=== PATIENT | male | born 1965 | race Caucasian/White ===

== ENCOUNTER 2017-11-05 14:53 | Emergency (ER) | payer MEDICAID ==
[~2017-11-05] VITALS: Ht 180.3 cm; Wt 77.0 kg
[~2017-11-05 14:53] MED LIST: APIX5TAB3 PO; ASPI-1009 PO; ATOR40TA PO; BACL10TA PO; CEPH500C5 PO; FLO0.1T PO; HYDR500C18 PO
[2017-11-05 14:55] VITALS: BP 119/84
[2017-11-05] MEDS ORDERED: LORazepam 2 mg/ml vial IV ONE (15:00)
[2017-11-05] MEDS ORDERED: diphenhydrAMINE 50 mg/ml inj IV ONE (15:00)
[2017-11-05] MEDS ORDERED: normal saline 1000ML IV soln IVB ONE ×2 (15:00)
[2017-11-05] MEDS ORDERED: metoclopramide 5 mg/ml inj IV ONE (15:00)
[2017-11-05] MEDS ORDERED: ketorolac trometh. 30mg/ml inj. IV ONE (15:20)
[2017-11-05] MEDS ORDERED: morphine 4 MG/ML inj SYRINge IV ONE (15:20)
[2017-11-05 15:28] LABS: BASOPHILS % (AUTO) 0.2 % (0-1); EOSINOPHILS # (AUTO) 0.2 X10'3 (0-0.9); EOSINOPHILS % (AUTO) 2.1 % (0-6); HEMATOCRIT 52.1 % (42.0-52.0); HEMOGLOBIN 17.7 g/dl (14.0-17.9); LYMPHOCYTES # (AUTO) 1.2 X10'3 (1.1-4.8); LYMPHOCYTES % (AUTO) 13.1 % (21-51); MEAN CORPUSCULAR HEMOGLOBIN 33.5 PG (27.0-31.0); MEAN CORPUSCULAR VOLUME 98.7 FL (78-98); MONOCYTES # (AUTO) 0.5 X10'3 (0-0.9); MONOCYTES % (AUTO) 5.5 % (2-12); NEUTROPHILS # (AUTO) 7.3 X10'3 (1.8-7.7); NEUTROPHILS % (AUTO) 79.1 % (42-75); PLATELET COUNT 815 X10'3 (140-440); RED BLOOD COUNT 5.28 X10'6 (4.70-6.10); RED CELL DISTRIBUTION WIDTH 13.4 % (11.5-14.5); WHITE BLOOD COUNT 9.2 X10'3 (4.5-11.0)
[2017-11-05 15:37] LABS: ALANINE AMINOTRANSFERASE 23 U/L (12-78); ALBUMIN 3.6 G/DL (3.4-5.0); ALBUMIN/GLOBULIN RATIO 0.8 (1.1-1.5); ALKALINE PHOSPHATASE 93 IU/L (46-116); ANION GAP 10 (8-16); ASPARTATE AMINO TRANSFERASE 21 U/L (10-37); BILIRUBIN,TOTAL 0.8 MG/DL (0.1-1.0); BLOOD UREA NITROGEN 13 MG/DL (7-18); BUN/CREATININE RATIO 11.6 (5.4-32.0); CALCIUM 9.3 MG/DL (8.5-10.1); CHLORIDE 104 MMOL/L (99-107); CREATININE 1.12 MG/DL (0.60-1.10); GLUCOSE 101 MG/DL (70-104); LIPASE 87 U/L (73-393); POTASSIUM 4.3 MMOL/L (3.5-5.1); SODIUM 141 MMOL/L (135-145); TOTAL CARBON DIOXIDE 26.6 MMOL/L (24-32); TOTAL PROTEIN 8.4 G/DL (6.4-8.2); eGFR 69 ML/MIN
[2017-11-05] MEDS ORDERED: FLO0.4C PO (17:23)
[2017-11-05] MEDS ORDERED: ONDA4TAB12 PO (17:23)
[2017-11-05] MEDS ORDERED: HYDR-3965 PO (17:23)
== END 2017-11-05 17:42 | disposition home or self-care (01) ==
LOC: ER 14:53
DX: N20.0 Calculus of kidney (principal); R10.32 Left lower quadrant pain; I25.10 Atherosclerotic heart disease of native coronary artery without angina pectoris; I10 Essential (primary) hypertension; I25.2 Old myocardial infarction; G89.29 Other chronic pain; F12.90 Cannabis use, unspecified, uncomplicated; F17.210 Nicotine dependence, cigarettes, uncomplicated; Z95.1 Presence of aortocoronary bypass graft; Z86.73 Personal history of transient ischemic attack (TIA), and cerebral infarction without residual deficits; Z79.82 Long term (current) use of aspirin; Z79.899 Other long term (current) drug therapy
CPT/HCPCS: 36415; 74176; 80053; 83690; 85025; 96374; 96375; 99285; J1200; J1885; J2060; J2270; J2765; J7030